=== PATIENT | female | born 1965 | race Caucasian/White ===

== ENCOUNTER → 2017-05-08 | Outpatient (CLI) | payer BC ==
[~2017-05-08] MED LIST: ALBUAER INH
[2017-05-08 17:40] LABS: BASO % 0.5 %; BASO ABS # 0.06 K/uL (0-0.2); COMPLETE YES; EOS % 1.3 %; HEMATOCRIT 45.1 % (37-47); IG% 0.2 %; LYMPH % 35.7 %; LYMPH ABS # 4.27 K/uL (1.2-3.4); MEAN CELL VOLUME 94.7 fL (80-100); MEAN CORPUSCULAR HEMOGLOBIN 31.7 pg (25-34); MEAN CORPUSCULAR HGB CONC 33.5 g/dl (32-36); MEAN PLATELET VOLUME 11.2 fL (7.4-10.4); MONO % 4.9 %; NEUT % 57.4 %; PLATELET COUNT 272 K/uL (130-400); RED BLOOD COUNT 4.76 M/uL (4.2-5.4); WHITE BLOOD COUNT 11.97 K/uL (4.8-10.8)
[2017-05-08 17:59] LABS: POTASSIUM 3.6 mmol/L (3.5-5.1)
== END | disposition home or self-care (01) ==
LOC: C.CPL 16:41
PROVIDERS: ATTEND Orthopaedic Surgery Sports Medicine
DX: Z01.810 Encounter for preprocedural cardiovascular examination (principal); Z01.812 Encounter for preprocedural laboratory examination

== ENCOUNTER → 2017-05-29 | Day surgery (SDC) | payer BC ==
[2017-05-09 13:43] VITALS: Ht 165.1 cm; Wt 54.5 kg
[~2017-05-29] VITALS: Ht 165.1 cm; Wt 54.5 kg
[~2017-05-29] MED LIST changes: +ATROPINE SULFATE 0.1 MG/ML 5ML SYR IV PRN; +BUPIVACAINE/EPINEPHRINE 0.5% MPF 1:200,000 30 ML VIAL ONE; +CLINDAMYCIN IV 300 MG in DEXTROSE 5% 50ML 50 ML IV SCH; +CLINDAMYCIN PHOS 150 MG/ML 2 ML VIAL IV ONE; +CLINDAMYCIN PHOS 150 MG/ML 2 ML VIAL IV SCH; +DEXAMETHASONE SOD INJ 4 MG/ML VIAL ONE; +FENTANYL CITRATE INJ 50 MCG/1 ML 2 ML VIAL IV PRN; +FENTANYL CITRATE INJ 50 MCG/1 ML 2 ML VIAL ONE; +KETO10TA PO; +KETOROLAC TROMETHAMINE 30 MG/ML VIAL IV. PRN; +LACTATED RINGER'S 1000ML 1,000 ML IV SCH; +LIDOCAINE HCL 2% 2 ML VIAL (20MG/ML) ONE; +MIDAZOLAM HCL 1 MG/ML 2ML VIAL ONE; +ONDANSETRON INJ 2 MG/ML 2 ML VIAL IV PRN; +ONDANSETRON INJ 2 MG/ML 2 ML VIAL ONE; +OXYC-57 PO; +OXYCODONE/ACETAMINOPHEN 5-325 TAB PO PRN; +PROPOFOL IV EMULSION 10 MG/ML 20 ML VIAL IV ONE; +SODIUM CHLORIDE 0.9% 1000ML 1,000 ML IV SCH
--- NOTE | 2017-05-29 08:02 | History & Physical Bridge - [place] ---
H&P Re-Evaluation Bridge Note: I have examined the patient, reviewed the History & Physical and in the interval since the performance of the History & Physical I have noted the following changes of clinical significance: No changes noted
--- NOTE | 2017-05-29 09:41 | [facility] Post Operative Brief Note ---
Immediate Operative Summary Operative Date May 29, 2017. 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 Cortés Automatic Centrifugal Station Operator Surgeon(s) Suresh Zarate PA-C Estimated Blood Loss 10 ML Findings Ulnar Abutment Specimens None Anesthesia General Complication(s) None Disposition Recovery Room / PACU
--- NOTE | 2017-05-29 09:45 | Discharge Instructions-SurgCtr ---
Discharge Instructions Date of Service May 29, 2017. Visit Reason for Visit: Right Wrist Joint Disorder/Ulnar Abutment Syndrome Discharge Discharge Diagnosis / Problem: RIGHT ULNAR ABUTMENT SYNDROME Discharge Goals Goal(s): Decrease discomfort, Improve function, Therapeutic intervention Activity Recommendations Activity Limitations: per Instructions/Follow-up section Anesthesia . Post Anesthesia Instructions: If you have had General Anesthesia or IV Sedation: * Do not drive today. * Resume driving when surgeon permits. * Do not make important decisions or sign legal documents today. * Call surgeon for: 1. Temperature elevations greater than 101 degrees F. 2. Uncontrollable pain. 3. Excessive bleeding. 4. Persistent nausea and vomiting. 5. Medication intolerance (nausea, vomiting or rash). * For nausea and vomiting use only clear liquids such as: tea, soda, bouillon until nausea subsides, then gradually increase diet as tolerated. * If you have any concerns or questions, call your surgeon's office. If physician is unavailable and it is an emergency, call 911 or go to the nearest emergency room. . Instructions / Follow-Up Instructions / Follow-Up MEDICATIONS: * Resume previous medications unless instructed otherwise by your surgeon. * Always take pain medication on a full stomach or with food to avoid upset stomach. * Do not drink alcohol or drive while taking narcotics. * Ibuprofen or Tylenol may be taken if narcotic not needed. No ibuprofen while taking toradol SPECIAL CARE INSTRUCTIONS: __ None _x_ Keep extremity elevated and iced x 48 hours; apply ice 20-30 minutes 8-10 times/day. May remove at night. _x_ Sling __24 hrs/day __ Remove at night __ Shoulder Immobilizer __ 24 hrs/day __ Remove at night _x_ Dressing _x_ Maintain until seen in office, may shower with plastic over site __ Remove dressings in 24-48 hours and then may shower __ Cover incisions with band-aids after showering __ Do not remove steri-strips Call physician if chills or temperature rises above 102 degrees or pain unrelieved by prescribed pain medications at . . follow up in 2 weeks Diet Recommendations Home Diet: resume previous diet Procedures Procedures Performed: Right Ulnar Shortening, Osteotomy Pending Studies Studies pending at discharge: no Medical Emergencies . Who to Call and When: Medical Emergencies: If at any time you feel your situation is an emergency, please call 911 immediately. . Non-Emergent Contact Non-Emergency issues call your: Surgeon . . "Provider Documentation" section prepared by Valentin Zarate. .
[2017-05-29 10:37] VITALS: TEMP 37.3
--- NOTE | 2017-05-29 11:00 | Anesthesia Progress Nt - [facility] ---
Anesthesia Post Op Note Date & Time May 29, 2017 at 11:00 Vital Signs Pain Intensity: 4.0 Vital Signs Past 12 Hours Date Time Temp Pulse Resp B/P (MAP) Pulse Ox O2 Delivery O2 Flow Rate FiO2 05/29/17 10:37 37.3 93 20 112/73 (86) 94 Room Air 05/29/17 10:16 133/91 05/29/17 10:15 37.3 97 20 126/84 96 Room Air 05/29/17 10:12 97 23 96 05/29/17 10:12 100 23 05/29/17 10:11 126/84 05/29/17 10:07 98 21 05/29/17 10:07 97 21 97 05/29/17 10:06 121/76 05/29/17 10:02 101 16 05/29/17 10:02 100 16 100 05/29/17 10:01 115/68 05/29/17 09:57 96 17 05/29/17 09:57 96 17 100 05/29/17 09:56 111/62 05/29/17 09:52 95 26 99 05/29/17 09:52 95 26 05/29/17 09:51 121/68 05/29/17 09:47 97 18 05/29/17 09:47 96 18 100 05/29/17 09:46 100 21 118/71 99 05/29/17 09:46 101 21 05/29/17 09:42 131/57 05/29/17 09:41 36.8 106 12 131/57 100 Diffusion Mask 6 05/29/17 07:07 37.2 87 18 115/82 (93) 98 Room Air Notes Mental Status: alert / awake / arousable, participated in evaluation Pt Amnestic to Procedure: Yes Nausea / Vomiting: adequately controlled Pain: adequately controlled Airway Patency, RR, SpO2: stable & adequate BP & HR: stable & adequate Hydration State: stable & adequate Anesthetic Complications: no major complications apparent
[2017-05-29 11:05] VITALS: BP 107/71; PULSE 94; O2SAT 95
--- NOTE | 2017-05-29 11:18 | OPERATIVE REPORT ---
DATE OF OPERATION: 05/29/2017 PREOPERATIVE DIAGNOSIS: Right ulnar abutment syndrome. POSTOPERATIVE DIAGNOSIS: Same. PROCEDURE: Right ulnar shortening osteotomy. SURGEON: Dr. Shahab Cortés. FIRM ADMINISTRATOR: Valentin Zarate PA-C. COMPLICATIONS: None. ESTIMATED BLOOD LOSS: 10 mL. TOURNIQUET TIME: 50 minutes at 350 mmHg. ANESTHESIA: General. SPECIMENS: None. OPERATIVE INDICATIONS: The patient is a 51-year-old right hand dominant female, very active [employer] who has had a long history of wrist pain that has gotten significantly worse over the past 6 months. She has been through extensive conservative treatment including splinting and injection without adequate relief. She had isolated ulnar-sided wrist pain. X-rays revealed the ulnar positive variant. The patient elected to proceed with ulnar shortening osteotomy. OPERATIVE IMPLANTS: Operative implants consisted of: 1. A Synthes 7-hole 3.5 LCDC plate. 2. A 3.5 fully threaded cortical screws x6. OPERATIVE PROCEDURE: The patient taken to the operating room, identified and placed on the operating table in supine position. All contact areas were appropriately padded. IV antibiotics were provided by anesthesia team. A general anesthetic was implemented by anesthesia team. Right upper extremity tourniquet was then placed. The right arm was then prepped and draped in the usual sterile fashion. The right arm was elevated and exsanguinated with Esmarch and tourniquet was placed at 250 mmHg. A direct lateral approach to the ulna was then performed through a longitudinal incision beginning about 3 cm proximal to the ulnar styloid as I did not want to put the plate very far distal as I was afraid it would be more prominent. Sharp dissection was carried down through the subcutaneous tissue down to the level of the fascia. Incision was made directly over the ulnar border between the FCU and ECU tendons. The dorsal tissues were stripped off the ulna. I left the volar tissues intact as much as possible. I then measured for the plate and made sure I had adequate exposure dorsally. I slightly bent a 7-hole 3.5 LCDC plate to the dorsal aspect of the ulna. I then fixed it distally with three 3.5 fully threaded cortical screws. I then mounted the Synthes compression distraction device with 2.0 mm K-wires. I then removed the plate and did the osteotomy. I removed about 3-4 mm of bone with about a millimeter of bone for each of the saw blade cuts for a total of about 4-5 mm of bone total removed. I then compressed this. I then placed the plate back on. I then got an x-ray and the ulna was about a millimeter short which is about exactly what we were planning. I then began fixing the plate proximally. I placed a 3.5 compression screw proximally in the second most proximal hole in a compression fashion to further compress the osteotomy site. I then placed 2 additional 3.5 screws through the more proximal holes. X-ray was brought in. All hardware was appropriately positioned. The ulna wound looked well aligned. The compression distraction device had been removed. Attention was then drawn toward closing. The wound was irrigated with copious amounts of normal saline. I did inject locally with 30 mL of 0.5% Marcaine with epinephrine. I did place some small little bone chips from the osteotomized fragment around the osteotomy site. The periosteum and soft tissue envelope over the plate was then closed with 3-0 Vicryl suture in running fashion. The tourniquet was then let down for a tourniquet time of 50 minutes. Hemostasis was assured with use of electrocautery. The subcutaneous tissues were then closed with 3-0 Vicryl suture in a buried interrupted fashion. The skin was closed with 3-0 Prolene suture in a subcuticular fashion. A sterile dressing composed of Steri-Strips, Xeroform, 4 x 4s, sterile cast padding and volar and dorsal splints were applied followed by a sling. The patient was then brought out of general anesthesia and transferred to the recovery room in stable condition. The patient tolerated the procedure with no complications. All needle and sponge counts were correct at the end of the operation. I attest to the content of the Intraoperative Record and any orders documented therein. Any exceptions are noted below. DIEGO
== END | disposition home or self-care (01) ==
LOC: X.SURG 06:58
PROVIDERS: ATTEND Orthopaedic Surgery Sports Medicine
DX: M25.831 Other specified joint disorders, right wrist (principal)